=== PATIENT | male | born 1995 | race Two or more races ===

== ENCOUNTER 2017-04-20 18:58 | Emergency (ER) | payer OTHER ==
[~2017-04-20] VITALS: Ht 190.5 cm; Wt 57.1 kg
[2017-04-20] MEDS ORDERED: PLEASE ENTER ALLERGIES MC SCH ×2 (19:30)
[2017-04-20] MEDS ORDERED: MORPHINE SULFATE 4 MG/ML, 1ML IVPush ONE (19:30)
[2017-04-20] MEDS ORDERED: SODIUM CHLORIDE FLUSH 10ML SYR IVF ONE (19:30)
[2017-04-20] MEDS ORDERED: SODIUM CHLORIDE 0.9% 1,000ML IVBOLUS ONE (19:30)
[2017-04-20] MEDS ORDERED: MORPHINE SULFATE 4 MG/ML, 1ML ONE (19:44)
[2017-04-20] MEDS ORDERED: ONDANSETRON 2MG/ML, 2ML ONE (19:44)
[2017-04-20 19:54] LABS: IS PT STATUS REG ER OR PRE ER? YES
[2017-04-20 19:55] LABS: BLOOD UREA NITROGEN 9 mg/dL (7-18)
[2017-04-20] MEDS ORDERED: ONDANSETRON 2MG/ML, 2ML IVPush ONE (20:00)
[2017-04-20 20:34] LABS: DIFF TOTAL CELLS COUNTED 100 CELL DIFF
[2017-04-20 20:36] LABS: VERIFY COUNTS? YES
[2017-04-21 01:44] VITALS: BP 101/65
== END 2017-04-21 01:58 | disposition home or self-care (01) ==
LOC: ED 20:20 → SUATTDRO 20:54 → ED 04-21 01:58
PROVIDERS: ATTEND Internal Medicine
DX: J93.83 Other pneumothorax (principal); F17.210 Nicotine dependence, cigarettes, uncomplicated
CPT/HCPCS: 36415; 71010; 71020; 80048; 82040; 84484; 85025; 93005; 96360; 96361; 99285; J7030